=== PATIENT | male | born 1990 | race Caucasian/White ===

== ENCOUNTER 2018-07-06 13:33 | Emergency (ER) | payer OTHER ==
--- NOTE | 2018-07-06 14:02 | ED Physician Documentation ---
PD HPI LOWER EXT INJURY - Stated complaint Stated Complaint: R FOOT INJ - Chief complaint Chief Complaint: Ext Problem - History obtained from History obtained from: Patient - History of Present Illness PD HPI LOW EXT INJURY LOCATION: Right, Foot Type of injury: Twist Where injury occurred: Home Timing - onset: Last night Worsened by: Palpating, Other (weight bearing) Associated symptoms: Swelling Similar symptoms before: Has not had sx before - Additional information Additional information: The patient is a 27-year-old male who was on a trampoline last night when he did a flip and landed wrong. He has had pain and slight swelling in his right foot since that time. He denies any other injuries. He has been angle to bear weight, but with discomfort. Review of Systems Constitutional: denies: Fever Skin: denies: Abrasion (s) Musculoskeletal: reports: Extremity pain (right foot). denies: Back pain Neurologic: denies: Focal weakness, Numbness PD PAST MEDICAL HISTORY - Past Medical History Endocrine/Autoimmune: None - Present Medications Home Medications: Ambulatory Orders Medication Instructions Recorded Confirmed No Known Home Medications 07/06/18 07/06/18 - Allergies Allergies/Adverse Reactions: Allergies Allergy/AdvReac Type Severity Reaction Status Date / Time No Known Drug Allergies Allergy Verified 07/06/18 13:43 PD ED PE NORMAL - Vitals Vital signs reviewed: Yes (Borderline systolic hypertension initially.) - General General: Alert and oriented X 3, Well developed/nourished - HEENT HEENT: Atraumatic - Respiratory Respiratory: No respiratory distress - Derm Derm: No rash - Extremities Extremities: Other (There is slight swelling, with tenderness to palpation over the dorsum of the right midfoot. There is no tenderness to palpation over the fifth metatarsal base, the lateral malleolus, or the medial malleolus. Distal neurovascular is intact.) - Neuro Neuro: Alert and oriented X 3, No motor deficit, No sensory deficit Results - Vitals Vitals: Vital Signs - 24 hr 07/06/18 13:41 Temperature 36.6 C Heart Rate 73 Respiratory 18 Rate Blood Pressure 138/74 H O2 Saturation 100 Oxygen O2 Source Room air - Rads (name of study) right foot Radiology: Prelim report reviewed, EMP read contemporaneously, See rad report (No acute osseous abnormality.) PD MEDICAL DECISION MAKING - ED course Complexity details: reviewed results, re-evaluated patient, considered differential, d/w patient, d/w family ED course: The patient's presentation is most consistent with right foot sprain. There is no evidence of fracture or dislocation on radiographic imaging. I discussed with him and his female software quality specialist the expected course of injury, symptomatic treatment and outpatient follow-up, as well as potentially worrisome signs or symptoms that should prompt reevaluation in the emergency department. Departure - Departure Disposition: 01 Home, Self Care Clinical Impression: Right foot sprain Qualifiers: Encounter type: initial encounter Qualified Code(s): S93.601A - Unspecified sprain of right foot, initial encounter Condition: Stable Instructions: ED Sprain Foot Follow-Up: SILVA Valdez [Provider Group] Comments: Keep your right foot elevated as much the time as possible. You can use ibuprofen, up to 800 mg 3 times daily if needed for pain. Let pain be your guide to activity level. Follow-up with your primary physician within 1 week. Call to schedule an appointment. Return to the emergency department if you develop increasing pain or swelling, or otherwise worsening symptoms.
--- NOTE | 2018-07-06 14:24 | XRAY Report ---
Reason: foot pain after jumping on trampoline Procedure Date: 07/06/2018 Accession Number: [id number] / [id number] Procedure: XR - Foot 3 View RT CPT Code: FULL RESULT: EXAM: RIGHT FOOT RADIOGRAPHY EXAM DATE: 07/06/2018 01:56 PM. CLINICAL HISTORY: Foot pain after jumping on trampoline. COMPARISON: None. TECHNIQUE: 3 views. FINDINGS: Bones: No acute fracture identified. Joints: Normal. No subluxations. Soft Tissues: Normal. No soft tissue swelling. IMPRESSION: No acute osseus abnormality. [facility]
[2018-07-06 14:43] VITALS: BP 125/85
== END 2018-07-06 14:43 | disposition home or self-care (01) ==
LOC: ED 13:33
DX: S93.601A Unspecified sprain of right foot, initial encounter (principal); W22.09XA Striking against other stationary object, initial encounter; X50.1XXA Overexertion from prolonged static or awkward postures, initial encounter; Y93.44 Activity, trampolining; Y92.009 Unspecified place in unspecified non-institutional (private) residence as the place of occurrence of the external cause
CPT/HCPCS: 99282; 99283